=== PATIENT | female | born 1985 | race Asian ===

== ENCOUNTER 2018-10-22 00:57 | Emergency (ER) | payer OTHER ==
[~2018-10-22] VITALS: Ht 154.9 cm; Wt 59.0 kg
[2018-10-22 00:57] VITALS: BP_SYST 112
[2018-10-22 01:10] VITALS: BP_SYST 112
== END 2018-10-22 01:10 ==
LOC: SED 00:57
DX: F10.129 Alcohol abuse with intoxication, unspecified (principal); F41.9 Anxiety disorder, unspecified; V89.2XXA Person injured in unspecified motor-vehicle accident, traffic, initial encounter; Y93.89 Activity, other specified; Y92.410 Unspecified street and highway as the place of occurrence of the external cause; Y99.8 Other external cause status
CPT/HCPCS: 99283